=== PATIENT | male | born 1990 | race Hispanic/Latino ===

== ENCOUNTER 2018-02-18 14:39 | Emergency (ER) | payer BC ==
[2018-02-18] MEDS ORDERED: ONDANSETRON 4 MG/2 ML VIAL ONE (15:32)
[2018-02-18] MEDS ORDERED: NA CHLORIDE 0.9% 1,000 ML ONE (15:33)
[2018-02-18] MEDS ORDERED: PANTOPRAZOLE 40 MG INJ ONE (15:33)
[2018-02-18 15:45] LABS: Absolute Lymphocytes (CBC) 1.8 K/uL (0.7-4.9); Absolute Monocytes 0.5 K/uL (0.1-1.3); Absolute Neutrophil 4.5 K/uL (1.8-8.0); Basophils % 0.6 % (0-1.3); Eosinophils % 2.5 % (0-4.4); Hematocrit 41.5 % (39.6-49.0); Lymphocytes % 25.5 % (15.3-44.8); MCH 34.9 pg (27.0-35.0); MCV 98.2 fL (80-100); MPV 9.6 fL (7.6-11.3); Monocytes % 7.3 % (3.3-12.3); RBC Red Blood Cell Count 4.23 M/uL (4.33-5.43)
[2018-02-18 15:54] LABS: Urine Blood NEGATIVE (NEG); Urine Glucose NEGATIVE (NEG); Urine Protein NEGATIVE (NEG); Urine Specific Gravity 1.025 (1.005-1.030)
[2018-02-18 15:55] LABS: Urine Bacteria <20 /HPF (NONE SEEN); Urine Culture Reflex Order NOT NEEDED; Urine RBC <5 /HPF (NONE SEEN)
[2018-02-18 16:16] LABS: ALT/SGPT 35 U/L (12-78); AST/SGOT 40 U/L (15-37); Albumin 4.1 g/dL (3.4-5.0); Alkaline Phosphatase 68 U/L (45-117); Amylase Level 14 U/L (25-115); BUN Blood Urea Nitrogen 16 mg/dL (7-18); Bicarbonate 29 mmol/L (21-32); Bilirubin Direct < 0.1 mg/dL (0-0.2); Bilirubin Total 0.5 mg/dL (0.2-1.0); Glucose Level 108 mg/dL (74-106); Lipase 47 U/L (73-393); Potassium 4.3 mmol/L (3.5-5.1); Protein, Total 7.9 g/dL (6.4-8.2); Sodium Level 137 mmol/L (136-145)
--- NOTE | 2018-02-18 17:34 | RAD REPORT ---
EXAM DESCRIPTION: CT - Abdomen Pelvis W Contrast - 02/18/2018 5:20 pm CLINICAL HISTORY: Abdominal pain. Epigastric pain. Vomiting COMPARISON: None. TECHNIQUE: Computed axial tomography of the abdomen and pelvis was obtained. 100 cc Isovue-300 is ad ministered intravenously. Oral contrast was given. All CT scans are performed using dose optimization technique as appropriate and may include automated exposure control or mA/KV adjustment according to patient size. FINDINGS: The liver, spleen, pancreas, adrenals and kidneys appear unremarkable. The appendix is normal caliber. There is no evidence of diverticulitis The wall of the rectum appears mildly thickened IMPRESSION: The wall of the rectum appears mildly thickened. This probably is secondary to spasm. Pa thology such as inflammation can also result in this appearance and should be correlated clinically
--- NOTE | 2018-02-18 17:39 | EDPHYS ---
Physician Documentation [facility] Name: Eduardo Quinonez Age: 27 yrs Sex: Male : 1990 Arrival Date: 02/18/2018 Time: 14:44 Bed 17 Private MD: None, None ED Physician Ken Castillo HPI: 02/18 15:09 This 27 yrs old Male presents to ER via Ambulatory with complaints of Vomiting.jmm 15:09 The patient presents to the emergency department with nausea, vomiting, abdominal pain, jmm of the anterior aspect of left lateral abdomen and left upper quadrant. Onset: The symptoms/episode began/occurred gradually, 1 day(s) ago. Possible causes: unknown. This is a 27 year old male with no chronic medical problems that presents to the ED with epigastric abdominal pain beginning yesterday with nausea. The patient states that he vomited a mellow yellow he drank earlier today and believes he tasted blood. Denies diarrhea, denies fever, denies recent abx use, denies chronic ETOH use. . Historical: - Allergies: 14:54 No Known Allergies; hj - Home Meds: 14:54 None [Active]; hj - PMHx: 14:54 None; hj - PSHx: 14:54 None; hj - Immunization history:: Adult Immunizations up to date. - Social history:: Smoking status: Patient uses tobacco products, Patient uses alcohol, only on a social basis. - Ebola Screening: : Patient negative for fever greater than or equal to 101.5 degrees Fahrenheit, and additional compatible Ebola Virus Disease symptoms Patient denies exposure to infectious person Patient denies travel to an Ebola-affected area in the 21 days before illness onset. ROS: 15:09 Constitutional: Negative for body aches, chills. jmm 15:09 Respiratory: Negative for shortness of breath. 15:09 Abdomen/GI: Positive for abdominal pain, nausea and vomiting. 15:09 All other systems are negative. Exam: 15:09 Head/Face: atraumatic. Eyes: EOMI, no conjunctival erythema appreciated ENT: Moist jmm Mucus Membranes Neck: Trachea midline, Supple Cardiovascular: Regular rate and rhythm. No edema appreciated Respiratory: Normal respirations, no respiratory distress appreciated 15:09 Constitutional: The patient appears in no acute distress, alert, awake. 15:09 Abdomen/GI: Inspection: abdomen appears normal, Bowel sounds: normal, Palpation: soft, mild abdominal tenderness, in the left upper quadrant. 15:09 Back: ROM is normal. 15:09 Musculoskeletal/extremity: ROM: intact in all extremities. 15:09 Skin: Appearance: Color: normal in color. 15:09 Neuro: Orientation: is normal, Mentation: is normal, Memory: is normal. 15:09 Psych: Behavior/mood is pleasant, cooperative. 17:11 Abdomen/GI: Rectal exam: Stool: brown, guaiac positive. [facility] Vital Signs: 14:56 BP 131 / 77; Pulse 73; Resp 18; Temp 98.9(O); Pulse Ox 98% on R/A; Weight 74.84 kg; hj Height 5 ft. 9 in. (175.26 cm); Pain 3/10; 16:31 BP 128 / 84; Pulse 71; Resp 16; Temp 98.8; Pulse Ox 99% on R/A; Pain 0/10; ch 14:56 Body Mass Index 24.37 (74.84 kg, 175.26 cm) MDM: 15:03 Patient medically screened. [facility] 16:52 Data reviewed: vital signs, nurses notes, lab test result(s). [facility] 17:34 Transition of care: After a detail discussion of the patient's case, care is [facility] transferred to Hector MORRIS. 17:37 ED course: Labs and PE findings are not concerning for an acute intrabdomibnal process. [facility] Patient will be prescribed PPI for possible PUD. Patient stated over the past year and a half has had regular episodes of epigastric discomfort with occasional vomiting. Patient encouraged to follow up with GI for further evaluation and advised to return to the ED if he develops worsening pain, or any repeat episode of vomiting blood. Patient understood and agrees with the plan of care. . 17:39 Data reviewed: radiologic studies, CT scan. [facility] 02/18 15:08 Order name: Amylase, Serum [facility] 02/18 15:08 Order name: Basic Metabolic Panel [facility] 02/18 15:08 Order name: CBC with Diff; Complete Time: 15:48 [facility] 02/18 15:08 Order name: Creatinine for Radiology; Complete Time: 16:04 [facility] 02/18 17:33 Interpretation: Abnormal. [facility] 02/18 15:08 Order name: Hepatic Function; Complete Time: 16:34 [facility] 02/18 15:08 Order name: Lipase; Complete Time: 16:34 [facility] 02/18 15:08 Order name: Urine Microscopic Only; Complete Time: 16:04 [facility] 02/18 15:08 Order name: CT Abd/Pelvis - W/Contrast; Complete Time: 17:36 [facility] 02/18 15:08 Order name: Amylase Level; Complete Time: 16:34 [facility] 02/18 15:08 Order name: Basic Metabolic Panel; Complete Time: 16:34 [facility] 02/18 15:25 Order name: Occult Blood [facility] 02/18 15:31 Order name: Urine Dipstick--Ancillary (enter results) 02/18 16:51 Order name: Guiac ag 02/18 16:59 Order name: Stool Culture 02/18 15:08 Order name: IV Saline Lock; Complete Time: 15:27 [facility] 02/18 15:08 Order name: Labs collected and sent; Complete Time: 15:27 [facility] 02/18 15:08 Order name: Urine Dipstick-Ancillary (obtain specimen); Complete Time: 15:27 [facility] Administered Medications: 15:36 Drug: NS 0.9% 1000 ml Route: IV; Rate: 1 bolus; Site: left antecubital; mg2 16:45 Follow up: IV Status: Completed infusion; IV Intake: 1000ml 15:36 Drug: Zofran 4 mg Route: IVP; Site: left antecubital; mg2 16:45 Follow up: Response: No adverse reaction; Marked relief of symptoms ch 15:36 Drug: ProTONIX 40 mg Route: IVP; Site: left antecubital; mg2 16:45 Follow up: Response: No adverse reaction; Marked relief of symptoms Disposition: 20:54 Co-signature as Attending Physician, Ken Castillo MD. Disposition: 02/18/18 17:39 Discharged to Home. Impression: Vomiting, Diarrhea, unspecified. - Condition is Stable. - Discharge Instructions: Diarrhea, Nausea and Vomiting. - Prescriptions for Zofran ODT 4 mg Oral tablet,disintegrating - take 2 tablet by ORAL route every 4-6 hours As needed; 30 tablet. omeprazole 40 mg Oral capsule,delayed release(DR/EC) - take 1 capsule by ORAL route once daily before a meal; 30 capsule. - Medication Reconciliation Form, Thank You Letter, Antibiotic Education, Prescription Opioid Use, Work release form form. - Follow up: Rafi Garcia; When: 2 - 3 days; Reason: Continuance of care. Signatures: Dispatcher [employer] EDHector Akhtar MD MD cha Mickail, Joel, PA PA jmm Joaquin, Henry, RN RN hj Ken Castillo MD MD Reggie Santana RN RN mg2 Johana Ureña RN Corrections: (The following items were deleted from the chart) 17:52 17:39 02/18/2018 17:39 Discharged to Home. Impression: Vomiting; Diarrhea, unspecified. mg2 Condition is Stable. Discharge Instructions: Diarrhea, Nausea and Vomiting. Prescriptions for Zofran ODT 4 mg Oral tablet,disintegrating - take 2 tablet by ORAL route every 4-6 hours As needed; 30 tablet, omeprazole 40 mg Oral capsule,delayed release(DR/EC) - take 1 capsule by ORAL route once daily before a meal; 30 capsule. and Forms are Medication Reconciliation Form, Thank You Letter, Antibiotic Education, Prescription Opioid Use. Follow up: Rafi Garcia; When: 2 - 3 days; Reason: Continuance of care. jose
--- NOTE | 2018-02-18 17:39 | ER ---
Nurse's Notes [facility] Name: Eduardo Quinonez Age: 27 yrs Sex: Male : 1990 Arrival Date: 02/18/2018 Time: 14:44 Bed 17 Private MD: None, None Diagnosis: Vomiting;Diarrhea, unspecified Presentation: 02/18 14:52 Presenting complaint: Patient states: yesterday i started having pain in my stomach hj (epigastric area), today i vomited, i noticed blood in my vomit; pain is 5/10; denies diarrhea, fever;. Transition of care: patient was not received from another setting of care. Onset of symptoms was February 18, 2018. Risk Assessment: Do you want to hurt yourself or someone else? Patient reports no desire to harm self or others. Initial Sepsis Screen: Does the patient meet any 2 criteria? No. Patient's initial sepsis screen is negative. Does the patient have a suspected source of infection? No. Patient's initial sepsis screen is negative. Care prior to arrival: None. 14:52 Method Of Arrival: Ambulatory 14:52 Acuity: CASH 3 hj Triage Assessment: 14:55 General: Appears in no apparent distress. uncomfortable, Behavior is calm, cooperative, hj appropriate for age. Pain: Complains of pain in abdomen. GI: Reports upper abdominal pain, nausea, vomiting. Historical: - Allergies: 14:54 No Known Allergies; hj - Home Meds: 14:54 None [Active]; hj - PMHx: 14:54 None; hj - PSHx: 14:54 None; hj - Immunization history:: Adult Immunizations up to date. - Social history:: Smoking status: Patient uses tobacco products, Patient uses alcohol, only on a social basis. - Ebola Screening: : Patient negative for fever greater than or equal to 101.5 degrees Fahrenheit, and additional compatible Ebola Virus Disease symptoms Patient denies exposure to infectious person Patient denies travel to an Ebola-affected area in the 21 days before illness onset. Screenin:55 Abuse screen: Denies threats or abuse. Denies injuries from another. Nutritional hj screening: No deficits noted. Tuberculosis screening: No symptoms or risk factors identified. Fall Risk None identified. Assessment: 14:55 GI: Abdomen is non-distended. hj 16:31 Reassessment: Patient appears in no apparent distress at this time. Patient and/or ch family updated on plan of care and expected duration. Pain level reassessed. Patient is alert, oriented x 3, equal unlabored respirations, skin warm/dry/pink. stool sample obtained Patient states feeling better. Patient states symptoms have improved. General: Appears in no apparent distress. comfortable, Behavior is calm, cooperative, appropriate for age. Pain:. Neuro: Level of Consciousness is awake, alert, obeys commands. Respiratory: No deficits noted. Vital Signs: 14:56 BP 131 / 77; Pulse 73; Resp 18; Temp 98.9(O); Pulse Ox 98% on R/A; Weight 74.84 kg; hj Height 5 ft. 9 in. (175.26 cm); Pain 3/10; 16:31 BP 128 / 84; Pulse 71; Resp 16; Temp 98.8; Pulse Ox 99% on R/A; Pain 0/10; ch 14:56 Body Mass Index 24.37 (74.84 kg, 175.26 cm) hj ED Course: 14:44 Patient arrived in ED. sb2 14:44 None, None is Private Physician. sb2 14:54 Triage completed. hj 14:55 Arm band placed on right wrist. hj 14:55 Patient has correct armband on for positive identification. Placed in gown. Bed in low hj position. Call light in reach. Side rails up X 1. 15:01 Surinder Olivas [facility] 15:01 Ken Castillo MD is Attending Physician. jm 15:26 Reggie Santana, MARQUEZ is Primary Nurse. mg2 15:27 Inserted saline lock: 20 gauge in left antecubital area, using aseptic technique. Blood mg2 collected. 16:59 Primary Nurse role handed off by Reggie Santana, MARQUEZ ch 16:59 Johana Ureña, MARQUEZ is Primary Nurse. ch 17:[address] via wheelchair. sj 17:19 CT completed. Patient tolerated procedure well. Patient moved back from CT. vm2 17:20 CT Abd/Pelvis - W/Contrast In Process Unspecified. EDMS 17:39 Rafi Garcia MD is Referral Physician. [facility] Administered Medications: 15:36 Drug: NS 0.9% 1000 ml Route: IV; Rate: 1 bolus; Site: left antecubital; mg2 16:45 Follow up: IV Status: Completed infusion; IV Intake: 1000ml ch 15:36 Drug: Zofran 4 mg Route: IVP; Site: left antecubital; mg2 16:45 Follow up: Response: No adverse reaction; Marked relief of symptoms ch 15:36 Drug: ProTONIX 40 mg Route: IVP; Site: left antecubital; mg2 16:45 Follow up: Response: No adverse reaction; Marked relief of symptoms ch Intake: 16:45 IV: 1000ml; Total: 1000ml. ch Outcome: 17:39 Discharge ordered by MD. garcia 17:52 Patient left the ED. mg2 Signatures: Dispatcher [employer] EDMS Johana Ureña, RN RN Surinder Olivas PA PA jmm Jones, Susan sj Joaquin, Henry, RN RN Shania Nicole 2 Nisha Roberson 2 Reggie Santana RN RN mg2 Corrections: (The following items were deleted from the chart) 14:58 14:56 Pulse 73bpm; Resp 18bpm; Pulse Ox 98% RA; Temp 98.9F Oral; 74.84 kg; Height 5 ft. hj 9 in.; BMI: 24.3; Pain 3/10; hj
== END 2018-02-18 17:52 | disposition home or self-care (01) ==
LOC: ER 14:39
DX: R19.7 Diarrhea, unspecified (principal); Z72.0 Tobacco use
CPT/HCPCS: 36415; 74177; 80048; 80076; 81003; 81015; 82150; 82272; 83690; 85025; 87045; 87046; 96361; 96374; 96375; 99284; C9113; J2405; J7030; Q9967

== ENCOUNTER 2019-04-25 13:25 | Emergency (ER) | payer BC ==
[2019-04-25] MEDS ORDERED: KETOROLAC 30 MG/ML INJ ONE (14:53)
[2019-04-25 15:06] LABS: Absolute Lymphocytes (CBC) 1.7 K/uL (0.7-4.9); Basophils % 0.2 % (0-1.3); Hematocrit 44.1 % (39.6-49.0); Lymphocytes % 17.7 % (15.3-44.8); MPV 9.8 fL (7.6-11.3); RBC Red Blood Cell Count 4.47 M/uL (4.33-5.43)
[2019-04-25 15:23] LABS: BUN Blood Urea Nitrogen 8 mg/dL (7-18); Bicarbonate 28 mmol/L (21-32); Glucose Level 97 mg/dL (74-106); Potassium 3.8 mmol/L (3.5-5.1); Sodium Level 138 mmol/L (136-145)
--- NOTE | 2019-04-25 16:01 | RAD REPORT ---
EXAM DESCRIPTION: CT - Soft Tissue Neck W/Contr - 04/25/2019 3:35 pm CLINICAL HISTORY: Facial pain and swelling, history of toothache TECHNIQUE: During dynamic enhancement using 100 milliliters nonionic IV contrast, axial 5 millimeter thick images of the neck were obtained. All CT scans are performed using dose optimization technique as appropriate and may include automated exposure control or mA/KV adjustment according to patient size. FINDINGS: Intracranial portion the examination is unremarkable. No globe or orbital content abnormal ity seen. Mastoid air cells and paranasal sinuses are clear. No bone fracture changes seen are clearl y destructive bone process. There is a thinning of the bone along the posterior margin of the right-s sally maxilla at the junction with the lateral pterygoid. No associated soft tissue abnormality is note d. No vascular abnormality seen. There is enhancement and enlargement of the right submandibular gland relative to the left. A 15 mill imeter lymph node adjacent to the anterior margin of the right submandibular gland shows prominent en hancement. A few additional right-side lymph nodes show enhancement compared to the left side neck ly mph nodes. There are enhancing tissues along the floor the mouth. This may be reactive from localized infectious/inflammatory response. No abscess or necrotic change to the lymph node or soft tissues. IMPRESSION: Enlarged, enhancing right submandibular gland and enhancement of adjacent lymph nodes li bella reactive infectious/ inflammatory enhancement. Similar enhancement of soft tissues along the floor the mouth. No abscess or drainable fluid collection identified.
--- NOTE | 2019-04-25 16:21 | ER ---
Nurse's Notes [facility] Name: Eduardo Quinonez Age: 28 yrs Sex: Male : 1990 Arrival Date: 04/25/2019 Time: 13:27 Bed 18 Private MD: None, None Diagnosis: Acute lymphadenitis;Dental caries Presentation: 04/25 13:32 Presenting complaint: Patient states: "I went to the dentist for a toothache and now my aa5 tongue is swelling up and I think my lymph nodes too". Pt reports he is taking Clindamycin. Transition of care: patient was not received from another setting of care. Onset of symptoms was April 2019. Risk Assessment: Do you want to hurt yourself or someone else? Patient reports no desire to harm self or others. Initial Sepsis Screen: Does the patient meet any 2 criteria? No. Patient's initial sepsis screen is negative. Does the patient have a suspected source of infection? No. Patient's initial sepsis screen is negative. Care prior to arrival: None. 13:32 Acuity: CASH 3 aa5 13:32 Method Of Arrival: Ambulatory aa5 Historical: - Allergies: 13:34 No Known Allergies; aa5 - PMHx: 13:34 None; aa5 - PSHx: 13:34 None; aa5 - Immunization history:: Adult Immunizations up to date. - Social history:: Smoking status: Patient uses tobacco products, denies chronic smoking, but will smoke occasionally. - Ebola Screening: : No symptoms or risks identified at this time. Screenin:05 Abuse screen: Denies threats or abuse. Nutritional screening: No deficits noted. em Tuberculosis screening: No symptoms or risk factors identified. Fall Risk None identified. Assessment: 14:05 General: Appears in no apparent distress. comfortable, Behavior is calm, cooperative, em Reports chills for 1-2 days. Pain: Complains of pain in right jaw Pain currently is 7 out of 10 on a pain scale. Pain began 2-3 days ago. Neuro: Level of Consciousness is awake, alert, obeys commands, Oriented to person, place, time, situation, Appropriate for age. Cardiovascular: Capillary refill < 3 seconds Patient's skin is warm and dry. Respiratory: Airway is patent Respiratory effort is even, unlabored, Respiratory pattern is regular, symmetrical, Denies shortness of breath. GI: Patient currently denies nausea, vomiting. EENT: Nares are clear Oral mucosa is moist. Throat is clear is pink. Derm: Skin is intact, is healthy with good turgor, Skin is pink, warm \\T\\ dry. Musculoskeletal: Capillary refill < 3 seconds, Range of motion: intact in all extremities. 14:15 General: The previous assessment is accurate, call light remains within reach.. ss 15:19 Reassessment: Patient appears in no apparent distress at this time. Patient and/or em family updated on plan of care and expected duration. Pain level reassessed. Patient is alert, oriented x 3, equal unlabored respirations, skin warm/dry/pink. 16:46 Reassessment: Patient appears in no apparent distress at this time. Patient and/or em family updated on plan of care and expected duration. Pain level reassessed. Patient is alert, oriented x 3, equal unlabored respirations, skin warm/dry/pink. Patient denies pain at this time. Patient states feeling better. Vital Signs: 13:34 BP 134 / 80; Pulse 66; Resp 18 S; Temp 98.0(TE); Pulse Ox 97% on R/A; Weight 72.57 kg aa5 (R); Height 5 ft. 9 in. (175.26 cm) (R); Pain 5/10; 15:12 BP 154 / 93; Pulse 58; Resp 18; Pulse Ox 99% on R/A; Pain 7/10; em 15:53 BP 107 / 66; Pulse 98; Resp 18; Pulse Ox 98% on R/A; kj1 16:47 BP 131 / 85; Pulse 53; Resp 18; Pulse Ox 100% on R/A; Pain 0/10; em 13:34 Body Mass Index 23.63 (72.57 kg, 175.26 cm) aa5 ED Course: 13:27 Patient arrived in ED. ag5 13:27 None, None is Private Physician. ag5 13:32 Arm band placed on. aa5 13:33 Triage completed. aa5 13:35 Laz Cruz LVN is Primary Nurse. em 13:48 Kenzie Antony NP is PHCP. rh1 13:48 Abhilash Hou MD is Attending Physician. rh1 14:05 Patient has correct armband on for positive identification. Bed in low position. Call em light in reach. 15:01 Initial lab(s) drawn, by me, sent to lab. Inserted saline lock: 22 gauge in right kj1 antecubital area, using aseptic technique. 15:35 CT completed. Patient tolerated procedure well. Patient moved back from CT. bq 15:37 CT Soft Tissue Neck W/contr In Process Unspecified. EDMS 16:46 No provider procedures requiring assistance completed. IV discontinued, intact, em bleeding controlled, No redness/swelling at site. Pressure dressing applied. Administered Medications: 15:10 Drug: Ketorolac 30 mg Route: IVP; Site: right antecubital; 15:22 Follow up: Response: No adverse reaction; Marked relief of symptoms; Pain is decreased em Outcome: 16:21 Discharge ordered by . rh1 16:46 Discharged to home ambulatory. em 16:46 Condition: good 16:46 Discharge instructions given to patient, Instructed on discharge instructions, follow up and referral plans. medication usage, Demonstrated understanding of instructions, follow-up care, medications, Prescriptions given X 2. 16:47 Patient left the ED. em Signatures: Dispatcher [employer] EDMS Piper Altamirano bq Laz Cruz, TIRE RECAPPER TIRE RECAPPER em Amaris Rose RN RN aa5 Jennie Morrow RN RN ss Kenzie Antony, ALEXUS DRAFTSPERSON 1 Tsering Almeida 5 Audrey Vallecillo kj1
--- NOTE | 2019-04-25 16:22 | EDPHYS ---
Physician Documentation [facility] Name: Eduardo Quinonez Age: 28 yrs Sex: Male : 1990 Arrival Date: 04/25/2019 Time: 13:27 Bed 18 Private MD: None, None ED Physician Abhilash Hou HPI: 04/25 14:19 This 28 yrs old Male presents to ER via Ambulatory with complaints of Mouth rh1 Swelling, Toothache. 14:19 The patient presents with broken tooth/teeth, swelling. The problem is located in the rh1 right jaw. Onset: The symptoms/episode began/occurred 1 week(s) ago. Duration: The symptoms are continuous, and are steadily getting worse. Modifying factors: The symptoms are alleviated by nothing, the symptoms are aggravated by chewing. Associated signs and symptoms: Pertinent positives: dysphagia, inability to eat, pain, swelling, Pertinent negatives: fever, redness in area, vomiting. Severity of symptoms: At their worst the symptoms were moderate, in the emergency department the symptoms are unchanged. The patient has not experienced similar symptoms in the past. The patient has been recently seen by a physician: a dentist, 4 day(s) ago. He began with left lower jaw pain and swelling approx. 1 week ago. Was seen at dentist and dx with right lower tooth infection, and was started on clindamycin and ibuprofen 4 days ago. Pain has not been improved overall, and this am began with swelling at the back of the tongue and in the throat. He has been able to swallow pills, overall decreased appetite and difficulty with swallowing foods. No coughing/choking.. Historical: - Allergies: 13:34 No Known Allergies; aa5 - PMHx: 13:34 None; aa5 - PSHx: 13:34 None; aa5 - Immunization history:: Adult Immunizations up to date. - Social history:: Smoking status: Patient uses tobacco products, denies chronic smoking, but will smoke occasionally. - Ebola Screening: : No symptoms or risks identified at this time. ROS: 14:19 Constitutional: Negative for fever, chills rh1 14:19 ENT: Positive for dental pain, difficulty swallowing, Negative for ear pain, nasal discharge, rhinorrhea, sinus congestion, difficulty handling secretions, hoarseness. 14:19 Neck: Positive for swollen nodes, tenderness, Negative for pain with movement, swelling. 14:19 Abdomen/GI: Negative for nausea and vomiting. 14:19 Skin: Positive for swelling, Negative for erythema. 14:19 Neuro: Negative for altered mental status. 14:19 All other systems are negative. Exam: 14:19 Constitutional: This is a well developed, well nourished patient who is awake, alert, rh1 and in no acute distress. Head/Face: Normocephalic, atraumatic. 14:19 Chest/axilla: Normal chest wall appearance and motion. Nontender with no deformity. No lesions are appreciated. Cardiovascular: Regular rate and rhythm with a normal S1 and S2. No gallops, murmurs, or rubs. No JVD. No pulse deficits. Respiratory: Lungs have equal breath sounds bilaterally, clear to auscultation. No rales, rhonchi or wheezes noted. No increased work of breathing. Abdomen/GI: Soft, non-tender, with normal bowel sounds. No distension. No guarding or rebound. No evidence of tenderness throughout. Back: No spinal tenderness. No costovertebral tenderness. Full range of motion. Skin: Warm, dry with normal turgor. Normal color with no rashes, no lesions, and no evidence of cellulitis. MS/ Extremity: Pulses equal, no cyanosis. Neurovascular intact. Full, normal range of motion. 14:19 ENT: External ear(s): are unremarkable, no pain with movement, Ear canal(s): are normal, clear, no cerumen impaction, no erythema, no foreign body, no purulent discharge, no swelling, TM's: are normal, no evidence of bulging, no dullness, no erythema, Nose: is normal, no drainage, Nasal mucosa: edematous, erythematous, Turbinates: are swollen bilaterally, Mouth: is normal, (-) tongue elevation (-) trismus Lips: normal, Oral mucosa: normal, pink and intact, Gums: pink, swollen, on the lower right second bicuspid, lower right first molar and lower right second molar, Tongue: is normal, drooling, is not appreciated, FOM soft, BOT without palpable abnormalties, no appreciable swelling, Posterior pharynx: is normal, airway is patent, no erythema, no exudate, no peritonsilar mass, no pooling of secretions, no swelling, Dental exam: fractured teeth are noted, specifically the lower right first molar (#30), malocclusion, is not appreciated, pain, that is moderate. 14:19 Neck: External neck: is normal, no cellulitis, no erythema, no swelling, Trachea: is midline with no obvious abnormalities, ROM/movement: is normal, is supple, without pain, no range of motions limitations, Lymph nodes: lymphadenopathy is appreciated, anterior cervical nodes, submandibular nodes. 14:19 Neuro: Orientation: is normal, to person, place \T\ time. Mentation: is normal, lucid, able to follow commands, Motor: is normal, moves all fours, strength is 5/5 in all extremities, Sensation: is normal, no obvious gross deficits, Gait: is steady, at a normal pace, without difficulty. Vital Signs: 13:34 BP 134 / 80; Pulse 66; Resp 18 S; Temp 98.0(TE); Pulse Ox 97% on R/A; Weight 72.57 kg aa5 (R); Height 5 ft. 9 in. (175.26 cm) (R); Pain 5/10; 15:12 BP 154 / 93; Pulse 58; Resp 18; Pulse Ox 99% on R/A; Pain 7/10; em 15:53 BP 107 / 66; Pulse 98; Resp 18; Pulse Ox 98% on R/A; kj1 16:47 BP 131 / 85; Pulse 53; Resp 18; Pulse Ox 100% on R/A; Pain 0/10; em 13:34 Body Mass Index 23.63 (72.57 kg, 175.26 cm) aa5 MDM: 14:19 Patient medically screened. rh1 16:18 Data reviewed: vital signs, nurses notes, lab test result(s), radiologic studies, CT rh1 scan. Data interpreted: Pulse oximetry: on room air is 98 %. Interpretation: normal. Counseling: I had a detailed discussion with the patient and/or guardian regarding: the historical points, exam findings, and any diagnostic results supporting the discharge/admit diagnosis, lab results, radiology results, the need for outpatient follow up, a dentist, to return to the emergency department if symptoms worsen or persist or if there are any questions or concerns that arise at home. Special discussion: I discussed with the patient/guardian in detail that at this point there is no indication for admission to the hospital. It is understood, however, that if the symptoms persist or worsen the patient needs to return immediately for re-evaluation. 04/25 14:46 Order name: CBC with Diff; Complete Time: 15:12 rh1 04/25 14:46 Order name: BMP; Complete Time: 15:51 rh1 04/25 14:46 Order name: CT Soft Tissue Neck W/contr; Complete Time: 16:17 rh1 04/25 14:46 Order name: IV Start; Complete Time: 15:07 rh1 Administered Medications: 15:10 Drug: Ketorolac 30 mg Route: IVP; Site: right antecubital; ss 15:22 Follow up: Response: No adverse reaction; Marked relief of symptoms; Pain is decreased em Disposition: 17:57 Co-signature as Attending Physician, Abhilash Hou MD. rn Disposition: 04/25/19 16:21 Discharged to Home. Impression: Acute lymphadenitis, Dental caries. - Condition is Stable. - Discharge Instructions: Dental Pain, Lymphadenopathy. - Prescriptions for penicillin V potassium 500 mg Oral tablet - take 1 tablet by ORAL route 3 times per day for 10 days; 30 tablet. Tramadol 50 mg Oral Tablet - take 1 tablet by ORAL route every 8 hours as needed; 12 tablet. - Work release form, Medication Reconciliation Form, Thank You Letter, Antibiotic Education, Prescription Opioid Use form. - Follow up: Private Physician; When: 1 - 2 days; Reason: Recheck today's complaints, Continuance of care, Re-evaluation by your physician. Follow up: Emergency Department; When: As needed; Reason: Fever > 102 F, If symptoms return, Trouble breathing, Worsening of condition. - Problem is new. - Symptoms have improved. Signatures: Dispatcher [employer] Laz Cruz, SOLUTIONS MANAGER SOLUTIONS MANAGER Abhilash Miguel MD MD rn Calderon, Audri, RN RN aa5 Jennie Morrow RN RN ss Jones, Rachel, NP SPECIALTIES OPERATOR rh1 Corrections: (The following items were deleted from the chart) 16:47 16:21 04/25/2019 16:21 Discharged to Home. Impression: Acute lymphadenitis; Dental em caries. Condition is Stable. Forms are Medication Reconciliation Form, Thank You Letter, Antibiotic Education, Prescription Opioid Use. Follow up: Private Physician; When: 1 - 2 days; Reason: Recheck today's complaints, Continuance of care, Re-evaluation by your physician. Follow up: Emergency Department; When: As needed; Reason: Fever > 102 F, If symptoms return, Trouble breathing, Worsening of condition. Problem is new. Symptoms have improved. rh1
[2019-04-25 17:01] VITALS: TEMP 98
[2019-04-25 17:06] VITALS: BP 131/85; O2SAT 100
== END 2019-04-25 16:47 | disposition home or self-care (01) ==
LOC: ER 13:25
DX: K02.9 Dental caries, unspecified (principal); L04.9 Acute lymphadenitis, unspecified; Z72.0 Tobacco use
CPT/HCPCS: 85025; 80048; 36415; 70491; 96374; 99284; Q9967